=== PATIENT | male | born 1945 | race Caucasian/White ===

== ENCOUNTER → 2019-06-02 | Outpatient (CLI) | payer MEDICARE, BC | END | disposition home or self-care (01) | LOC: LAB SHORT 11:27 → PLD 11:27 | DX: D48.5 Neoplasm of uncertain behavior of skin (principal) | CPT/HCPCS: 88305 ==

== ENCOUNTER 2020-10-13 16:52 | Observation (INO) | payer MEDICARE, BC ==
[~2020-10-13] VITALS: Ht 180.3 cm; Wt 106.6 kg
[2020-10-13 17:53] LABS: Anion Gap 12 mmol/L (6-16); Blood Urea Nitrogen 17 mg/dL (8-24); Bun/Creatinine Ratio 17.3 (12.0-20.0); CO2, Blood 20 mmol/L (21-32); Calcium, Blood 8.8 mg/dL (8.5-10.1); Chloride, Blood 110 mmol/L (98-108); Creatinine, Blood 0.98 mg/dL (0.60-1.20); Glomerular Filtration Rate >60 (60-); Glucose, Blood 142 mg/dL (70-99); Potassium, Blood 3.8 mmol/L (3.5-5.5); Sodium, Blood 142 mmol/L (136-145)
[2020-10-13 17:58] LABS: BASOPHILS ABSOLUTE AUTO 0.05 K/mm3 (0.00-0.23); BASOPHILS PERCENT AUTO 1 % (0-2); EOSINOPHILS ABSOLUTE AUTO 0.16 K/mm3 (0.00-0.68); EOSINOPHILS PERCENT AUTO 2 % (0-6); Hematocrit 47.9 % (37.0-53.0); Hemoglobin 16.5 g/dL (13.5-17.5); IMMATURE GRAN ABSOLUTE AUTO 0.07 K/mm3 (0.00-0.10); IMMATURE GRAN PERCENT AUTO 1 % (0-1); LYMPHOCYTES PERCENT AUTO 11 % (21-46); MONOCYTES ABSOLUTE AUTO 0.75 K/mm3 (0.16-1.47); MONOCYTES PERCENT AUTO 7 % (4-13); Mean Corpuscular HGB 31.8 pg (26.0-34.0); Mean Corpuscular HGB Conc 34.4 g/dL (31.5-36.5); Mean Corpuscular Volume 92 fL (80-100); Mean Platelet Volume 10.1 fL (9.1-12.4); NEUTROPHILS ABSOLUTE AUTO 8.32 K/mm3 (1.96-9.15); NEUTROPHILS PERCENT AUTO 79 % (41-73); Platelet Count 204 K/mm3 (150-400); RDW Coefficient Variation 12.3 % (11.7-14.2); RDW Standard Deviation 41.8 fL (35.1-46.3); Red Blood Cell Count 5.19 M/mm3 (4.30-5.90); White Blood Cell Count 10.55 K/mm3 (4.00-11.30)
[2020-10-13] MEDS ORDERED: AMLODIPINE BESY10 MG PO (19:27)
--- NOTE | 2020-10-14 05:33 | NUR ---
SHIFT SUMMARY POD#1 HERNIA REPAIR. AAOX4. DISCOMFORT AT TOLERABLE LEVEL SINCE ADMISSION TO FLOOR. NO NAUSEA/EMESIS. ABD INCISIONS X4 VIANCA WITH GAUZE OVER UMBILICAL INCISION C/D/I. PT UP MOVING IN ROOM, TOLERATING SIPS CLEARS + VOID X2 IN URINAL. RESTING WELL SINCE 0200 THIS AM WITH CALL LIGHT IN REACH.
--- NOTE | 2020-10-14 09:20 | NUR ---
10/14/20 0920 Cristel Sellers VERIFICATIONS: EDIT CHART.
[2020-10-14] MEDS ORDERED: HYDR1TAB94 PO (09:32)
[2020-10-14] MEDS ORDERED: DOCU100 PO ×2 (09:33)
--- NOTE | 2020-10-14 10:38 | NUR ---
DISCHARGE SUMMARY PT ALERT AND ORIENTED. INDPENDENT IN ROOM. TOLERATING REGULAR DIET, VOIDING WELL. DENIES NAUSEA, VOMITING, CHEST PAIN, SHORTNESS OF BREATH. PAIN CONTROLLED WITH PO TYLENOL. ABD TENDER, INCISIONS C/D/I. DISCHARGE ORDER OBTAINED. DISCHARGE EDUCATION GIVEN BY TECHNICAL SYSTEMS ARCHITECT ON WOUND CARE, ACTIVITY, DIET, NEW RXS, AND FOLLOW UP APPTS. PATIENT LEFT UNIT WITH SPOUSE FOR HOME AT 1000.
== END 2020-10-14 10:00 | disposition home or self-care (01) ==
LOC: ER 16:52 → SURS 23:52
PROVIDERS: Physician Assistant; ADMIT Surgery
PROC: 0WQF4ZZ Repair Abdominal Wall, Percutaneous Endoscopic Approach (ICD-10-PCS; principal; 2020-10-13 21:30)
DX: K42.0 Umbilical hernia with obstruction, without gangrene (principal); I10 Essential (primary) hypertension; Z88.6 Allergy status to analgesic agent; Z88.1 Allergy status to other antibiotic agents; Z85.47 Personal history of malignant neoplasm of testis; Z85.46 Personal history of malignant neoplasm of prostate
CPT/HCPCS: 74177; 80048; 83605; 85025; 93005; 93010; 96374-59; 99284-25; A9270; G0378; J0690; J1100; J1170; J2370; J2405; J2704; J3010; Q9967

== ENCOUNTER 2020-10-15 04:49 | Observation (INO) | payer MEDICARE, BC ==
[~2020-10-15] VITALS: Ht 180.3 cm; Wt 111.1 kg
[~2020-10-15 04:49] MED LIST: AMLODIPINE BESY10 MG PO; DOCU100 PO; HYDR1TAB94 PO
[2020-10-15 05:15] LABS: BASOPHILS ABSOLUTE AUTO 0.05 K/mm3 (0.00-0.23); BASOPHILS PERCENT AUTO 0 % (0-2); EOSINOPHILS PERCENT AUTO 0 % (0-6); Hematocrit 48.6 % (37.0-53.0); Hemoglobin 17.1 g/dL (13.5-17.5); IMMATURE GRAN ABSOLUTE AUTO 0.19 K/mm3 (0.00-0.10); IMMATURE GRAN PERCENT AUTO 1 % (0-1); LYMPHOCYTES ABSOLUTE AUTO 1.39 K/mm3 (0.84-5.20); LYMPHOCYTES PERCENT AUTO 6 % (21-46); MONOCYTES ABSOLUTE AUTO 1.59 K/mm3 (0.16-1.47); MONOCYTES PERCENT AUTO 7 % (4-13); Mean Corpuscular HGB 32.1 pg (26.0-34.0); Mean Corpuscular HGB Conc 35.2 g/dL (31.5-36.5); Mean Corpuscular Volume 91 fL (80-100); Mean Platelet Volume 10.1 fL (9.1-12.4); NEUTROPHILS ABSOLUTE AUTO 19.22 K/mm3 (1.96-9.15); NEUTROPHILS PERCENT AUTO 86 % (41-73); Platelet Count 227 K/mm3 (150-400); RDW Coefficient Variation 12.3 % (11.7-14.2); RDW Standard Deviation 40.3 fL (35.1-46.3); Red Blood Cell Count 5.33 M/mm3 (4.30-5.90); White Blood Cell Count 22.44 K/mm3 (4.00-11.30)
[2020-10-15 05:38] LABS: Alanine Aminotransfer (ALT/SGP 29 U/L (12-78); Albumin, Blood 3.8 g/dL (3.4-5.0); Albumin/Globulin Ratio 1.1 (0.8-1.8); Alk Phos 65 U/L (50-136); Anion Gap 7 mmol/L (6-16); Aspartate Aminotrans (AST/SGOT 17 U/L (12-37); Bilirubin, Total 0.5 mg/dL (0.1-1.0); Blood Urea Nitrogen 16 mg/dL (8-24); CO2, Blood 24 mmol/L (21-32); Calcium, Blood 8.7 mg/dL (8.5-10.1); Chloride, Blood 109 mmol/L (98-108); Globulin, Blood 3.5 g/dL (2.2-4.0); Glomerular Filtration Rate >60 (60-); Glucose, Blood 174 mg/dL (70-99); Potassium, Blood 3.8 mmol/L (3.5-5.5); Sodium, Blood 140 mmol/L (136-145); Total Protein, Blood 7.3 g/dL (6.4-8.2)
--- NOTE | 2020-10-15 08:49 | NUR ---
10/15/20 0849 BONITALINDA COOPER PT RECEIVED SCHEDULED DOSE OF ANTIBIOTICS PRIOR TO PROCEDURE PER DR ORDERS.
--- NOTE | 2020-10-15 11:27 | NUR ---
PT ARRIVED TO UNIT FROM PACU A&OX4. DENIES PAIN, N/V OR SOB. GAUZE DRESSING W/TEGADERM TO UMBILICUS HAS SMALL AMT SS DRAINAGE NOTED. ABDOMINAL BINDER IN PLACE. ORIENTED TO ROOM. USING URINAL AT THIS TIME.
--- NOTE | 2020-10-15 15:09 | NUR ---
PT PRESCRIPTIONS PT'S SPOUSE REPORTED HAD BOTTLE OF METOPROLOL AND NARCOTIC PAIN MEDS IN ED, NOW CAN'T FIND THEM. CALLED PHARMACY AND THEY DO NOT HAVE. RELAYED INFO TO PT.
--- NOTE | 2020-10-15 18:07 | NUR ---
SUMMARY NO ACUTE CHANGES SINCE ARRIVING TO FLOOR. HAS DENIED PAIN, N/V OR SOB. SMALL AMOUNT SS DRAINAGE NOTED TO UMBILICAL SITE DRESSING. ABD BINDER IN PLACE. VSS. TOOK ONLY FEW SIPS DINNER, STATING DIDN'T FEEL HUNGRY. CALL LIGHT IN REACH.
[2020-10-16 04:35] LABS: Hematocrit 43.5 % (37.0-53.0); Mean Corpuscular HGB 32.4 pg (26.0-34.0); Mean Corpuscular HGB Conc 34.5 g/dL (31.5-36.5); Mean Corpuscular Volume 94 fL (80-100); Mean Platelet Volume 10.1 fL (9.1-12.4); Platelet Count 186 K/mm3 (150-400); RDW Coefficient Variation 12.6 % (11.7-14.2); RDW Standard Deviation 43.1 fL (35.1-46.3); Red Blood Cell Count 4.63 M/mm3 (4.30-5.90); White Blood Cell Count 19.75 K/mm3 (4.00-11.30)
[2020-10-16 05:22] LABS: Anion Gap 5 mmol/L (6-16); Blood Urea Nitrogen 16 mg/dL (8-24); Bun/Creatinine Ratio 14.7 (12.0-20.0); CO2, Blood 28 mmol/L (21-32); Calcium, Blood 8.2 mg/dL (8.5-10.1); Chloride, Blood 110 mmol/L (98-108); Creatinine, Blood 1.09 mg/dL (0.60-1.20); Glomerular Filtration Rate >60 (60-); Glucose, Blood 144 mg/dL (70-99); Potassium, Blood 3.7 mmol/L (3.5-5.5); Sodium, Blood 143 mmol/L (136-145)
--- NOTE | 2020-10-16 06:34 | NUR ---
SHIFT SUMMARY: 75 Y/O OBESE MALE RESTED COMFORTABLY ALLL SHIFT; PT SAT IN CHAIR FOR 1 HOUR LAST NIGHT AND WAS ABLE TO AMBULATE DOORWAY AND BACK WITH GAIT SLOW AND STEADY; PT WORE ABD BINDER AND PLACED LARGE FOLDED BLANKET TO ABD FOR SUPPORT WITH MOVEMENT; PT EDUCATED NEED TO AVOID STRENUOUS PHYSICAL ACTIVITIES TO INCLUDE NO LIFTING OBJECTS OVER 5LBS FOR 6 WEEKS; NO SWIMMING IN POOLS DUE RISK INFECTION; USAGE OF INCENTIVE SPIROMETER; UMBILICUS DRESSING HAS OLD DRIED SEROSANGINUOUS DRAINAGE NOTED; BED LOW POSITION WITH CALL LIGHT AT SIDE.
[2020-10-16] MEDS ORDERED: DOCU100 PO ×2 (10:50)
[2020-10-16] MEDS ORDERED: METOPROLOL TART25 MG PO (10:57)
--- NOTE | 2020-10-16 11:31 | NUR ---
DISCHARGED DC'D IV, CATHETER INTACT. REVIEWED DC INSTRUCTION W/PT AND SIGNIFICANT OTHER; VERBALIZED UNDERSTANDING. PT LEFT UNIT IN WC W/POSSESSIONS AND DC INSTRUCTIONS IN HAND, ACCOMPANIED BY SIGNIFICANT OTHER TO CAR OUTSIDE.
== END 2020-10-16 11:22 | disposition home or self-care (01) ==
LOC: ER 04:49 → SURS 04:50 → ER 07:23 → SURS 07:23
PROVIDERS: Student in an Organized Health Care Education/Training Program; ADMIT Surgery
PROC: 0WUF0JZ Supplement Abdominal Wall with Synthetic Substitute, Open Approach (ICD-10-PCS; principal; 2020-10-15 07:15)
DX: K42.0 Umbilical hernia with obstruction, without gangrene (principal); I10 Essential (primary) hypertension; Z85.46 Personal history of malignant neoplasm of prostate; Z85.47 Personal history of malignant neoplasm of testis; Z88.6 Allergy status to analgesic agent; Z88.1 Allergy status to other antibiotic agents
CPT/HCPCS: 36415; 74177; 80048; 80053; 85025; 85027; 96365-59; 96366; 96375-59; 96376; 99285-25; A9270; C1781; G0378; J1100; J2250; J2370; J2405; J2543; J2704; J3010; J7030; J7050; Q9967

== ENCOUNTER 2021-06-14 09:40 | Day surgery (SDC) | payer MEDICARE, BC ==
[~2021-06-14] VITALS: Ht 180.3 cm; Wt 103.8 kg
[~2021-06-14 09:40] MED LIST changes: +METOPROLOL TART25 MG PO
--- NOTE | 2021-06-14 11:29 | NUR ---
06/14/21 Ry9 Dejah Gomez HISTORY,CHART, MEDICATIONS AND ALLERGIES REVIEWED BEFORE START OF PROCEDURE. PATIENT CONFIRMS NPO STATUS AND AGREES WITH SCHEDULED PROCEDURE. 3-LEAD EKG REVIEWED WITH PHYSICIAN PRIOR TO START OF PROCEDURE. MONITOR INTACT WITH CONTINUOUS PULSE OXIMETRY AND INTERMITTENT BP. SUPPLEMENTAL O2 TO BE TITRATED THROUGHOUT PROCEDURE TO MAINTAIN O2 SATURATION ABOVE 90%. PATIENT DETERMINED TO BE ASA APPROPRIATE FOR MODERATE SEDATION PRIOR TO START OF PROCEDURE BY DR. MÁRQUEZ.
--- NOTE | 2021-06-14 12:29 | NUR ---
DISCHARGE SUMMARY PT A&OX4, VSS/RA, DEMOND PO, DENIES PAIN, LEFT VIA WC WITH RN, TO GO HOME WITH TODAY, WITH ALL PERSONAL POSSESSIONS INCLUDING DC PACKET, UNDERSTANDING INSTRUCTIONS. IV DC'D.
== END 2021-06-14 22:53 | disposition home or self-care (01) ==
LOC: ORSCMMR 09:40 → ORD 06-21 10:30
PROVIDERS: Internal Medicine Gastroenterology
PROC: 0DBN8ZX Excision of Sigmoid Colon, Via Natural or Artificial Opening Endoscopic, Diagnostic (ICD-10-PCS; principal; 2021-06-14 10:30)
PROC: 0DBL8ZX Excision of Transverse Colon, Via Natural or Artificial Opening Endoscopic, Diagnostic (ICD-10-PCS; principal; 2021-06-14 10:30)
PROC: 0DBH8ZX Excision of Cecum, Via Natural or Artificial Opening Endoscopic, Diagnostic (ICD-10-PCS; principal; 2021-06-14 10:30)
PROC: 0DBP8ZX Excision of Rectum, Via Natural or Artificial Opening Endoscopic, Diagnostic (ICD-10-PCS; principal; 2021-06-14 10:30)
DX: Z12.11 Encounter for screening for malignant neoplasm of colon (principal); Z86.010 Personal history of colon polyps; K63.5 Polyp of colon; D12.3 Benign neoplasm of transverse colon; K62.1 Rectal polyp; I10 Essential (primary) hypertension; Z79.899 Other long term (current) drug therapy
CPT/HCPCS: 88305; J2250; J3010; J7120